=== PATIENT | female | born 1995 | race African-American/Black ===

== ENCOUNTER 2017-02-19 21:53 | Emergency (ER) | payer OTHER ==
--- NOTE | 2017-02-19 23:42 | XRAY Preliminary Report ---
Exam: XR Abdomen 2 View IMPRESSION: 1. No acute abnormality seen. [facility] SITE ID: [id number]
--- NOTE | 2017-02-19 23:45 | XRAY Report ---
EXAM: ABDOMEN RADIOGRAPHY EXAM DATE: 02/19/2017 11:24 PM. CLINICAL HISTORY: Diffuse abdominal pain and constipation. COMPARISON: None. TECHNIQUE: 2 views. FINDINGS: Lung Bases: Unremarkable. Bowel Gas Pattern: No dilated loops or abnormal air-fluid levels. Free Air: None. Other: None. IMPRESSION: 1. No acute abnormality seen. [facility] Referring Provider Line: [phone] SITE ID: [id number]
[2017-02-19 23:46] LABS: BASOPHILS # (AUTO) 0.1 10^3/uL (0.0-0.1); BASOPHILS % (AUTO) 1.1 %; EOSINOPHILS # (AUTO) 0.1 10^3/uL (0.0-0.7); EOSINOPHILS % (AUTO) 2.3 %; HCT - HEMATOCRIT 38.8 % (37.0-47.0); LYMPHOCYTES # (AUTO) 2.4 10^3/uL (1.5-3.5); LYMPHOCYTES % (AUTO) 45.4 %; MEAN CORPUSCULAR HEMOGLOBIN 29.8 pg (27.0-31.0); MEAN CORPUSCULAR HGB CONC 33.5 g/dL (32.0-36.0); MEAN CORPUSCULAR VOLUME 88.9 fL (81.0-99.0); MEAN PLATELET VOLUME 9.7 fL (7.9-10.8); MONOCYTES # (AUTO) 0.5 10^3/uL (0.0-1.0); MONOCYTES % (AUTO) 10.1 %; NEUTROPHILS # (AUTO) 2.2 10^3/uL (1.5-6.6); NEUTROPHILS % (AUTO) 41.1 %; RED BLOOD COUNT 4.36 10^6/uL (4.20-5.40); RED CELL DISTRIBUTION WIDTH 13.5 % (12.0-15.0); UNCORRECTED WHITE BLOOD COUNT 5.4 x10^3/uL; WHITE BLOOD COUNT 5.4 x10^3/uL (4.8-10.8)
--- NOTE | 2017-02-19 23:48 | ED Physician Documentation ---
PD HPI ABD PAIN - Stated complaint Stated Complaint: SIDE PX - Chief complaint Chief Complaint: Abd Pain - History obtained from History obtained from: Patient, Friend - History of Present Illness Timing - onset: How many weeks ago (4) Timing - details: Gradual onset, Intermittant, Waxing and waning Quality: Cramping, Sharp Location: All over / everywhere Worsened by: Eating, Position, Palpation Associated symptoms: Constipation. No: Fever, Nausea, Vomiting, Diarrhea Similar symptoms before: Has not had sx before Recently seen: Not recently seen - Additional information Additional information: Patient is a 21 year old female with no significant past medical history who is presenting to the emergency department for abdominal pain. Patient states that the pain has been coming and going for the last few month. Patient states that she only has a bowel movement if she drinks prune juice. Patient denies any other aggravating or alleviating factors. Patient denies nausea, vomiting, fevers or chills. Review of Systems Constitutional: denies: Fever, Chills Eyes: denies: Decreased vision Ears: denies: Ear pain, Drainage/discharge Nose: denies: Rhinorrhea / runny nose, Congestion Throat: denies: Dental pain / toothache, Oral lesions / sores Cardiac: denies: Chest pain / pressure, Palpitations GI: reports: Abdominal Pain, Constipation. 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 : None HEENT: None Psych: None Musculoskeletal: None Derm: None - Past Surgical History Past Surgical History: No - Present Medications Home Medications: Ambulatory Orders Medication Instructions Recorded Confirmed Dicyclomine [Bentyl] 10 mg PO QID #14 capsule 02/20/17 - Allergies Allergies/Adverse Reactions: Allergies Allergy/AdvReac Type Severity Reaction Status Date / Time No Known Drug Allergies Allergy Verified 02/19/17 22:03 - Social History Does the pt smoke?: No Smoking Status: Never smoker Does the pt drink ETOH?: No Does the pt have substance abuse?: No - Immunizations Immunizations are current?: Yes - POLST Patient has POLST: No PD ED PE NORMAL - Vitals Vital signs reviewed: Yes - General General: Alert and oriented X 3, No acute distress, Well developed/nourished - HEENT HEENT: Atraumatic, PERRL - Neck Neck: Supple, no meningeal sign - Cardiac Cardiac: RRR, No murmur - Respiratory Respiratory: No respiratory distress, Clear bilaterally - Abdomen Abdomen: Soft - Derm Derm: Normal color, Warm and dry, No rash - Extremities Extremities: No deformity, No tenderness to palpate - Neuro Neuro: Alert and oriented X 3, No motor deficit, No sensory deficit, Normal speech - Psych Psych: Normal mood, Normal affect PD ED PE EXPANDED - Abdomen Abdomen: Tender to palpation, Generalized/diffuse. No: Distended, Rebound, Guarding Results - Vitals Vitals: Vital Signs - 24 hr 02/19/17 02/19/17 21:57 22:48 Temperature 36.6 C Heart Rate 70 Respiratory 16 16 Rate Blood Pressure 125/88 H O2 Saturation 99 Oxygen O2 Source Room air - Labs Labs: Laboratory Tests 02/19/17 02/19/17 02/19/17 23:30 23:30 23:45 WBC 5.4 RBC 4.36 Hgb 13.0 Hct 38.8 MCV 88.9 MCH 29.8 MCHC 33.5 RDW 13.5 Plt Count 218 MPV 9.7 Neut # 2.2 Lymph # 2.4 [place] # 0.5 Eos # 0.1 Baso # 0.1 Absolute Nucleated RBC 0.00 Nucleated RBC % 0.0 Sodium 138 Potassium 3.7 Chloride 106 Carbon Dioxide 23 Anion Gap 9.0 BUN 10 Creatinine 0.7 Estimated GFR (MDRD) 131 Glucose 119 H Calcium 9.4 Total Bilirubin 0.4 AST 16 ALT 15 Alkaline Phosphatase 55 Total Protein 7.2 Albumin 4.2 Globulin 3.0 Albumin/Globulin Ratio 1.4 Lipase 24 Urine Color YELLOW Urine Clarity CLEAR Urine pH 6.5 Ur Specific [place] 1.020 Urine Protein NEGATIVE Urine Glucose (UA) NEGATIVE Urine Ketones NEGATIVE Urine Occult Blood NEGATIVE Urine Nitrite NEGATIVE Urine Bilirubin NEGATIVE Urine Urobilinogen 1 (NORMAL) Ur Leukocyte Esterase NEGATIVE Ur Microscopic Review NOT INDICATED Urine Culture Comments NOT INDICATED Urine HCG, Qual NEGATIVE - Rads (name of study) abd x-ray Radiology: Final report received (no obstruction appreciated) PD MEDICAL DECISION MAKING - ED course Complexity details: reviewed old records, reviewed results, re-evaluated patient , considered differential, d/w patient ED course: Patient was seen and examined at bedside. labs were drawn, urine was collected and imaging was ordered. patient's diagnostics were all within normal limits. Patient was well appearing with a soft abdomen. Patient required no further work-up and was stable for discharge with outpatient follow up. Departure - Departure Disposition: Home, Self Care Clinical Impression: Abdominal pain Condition: Good Instructions: ED Abdominal Pain Unkn Cause Follow-Up: primary,care provider [Other] Prescriptions: Dicyclomine [Bentyl] 10 mg PO QID #14 capsule Comments: Your diagnostics today were within normal limits. It is difficult to say what is exactly causing your pain but is likely due to abdominal cramping. you should try to increase your fluid intake, and fruits and vegetables. You can take motrin or tylenol as needed for pain, and can take the bentyl for abdominal cramping. You should follow up with your pmd if your symptoms persist. You may return to the emergency department at any time for new, worsening or uncontrollable symptoms.
[2017-02-19 23:55] LABS: ALBUMIN/GLOBULIN RATIO 1.4 (1.0-2.2); BILIRUBIN,TOTAL 0.4 mg/dL (0.2-1.0); CALCIUM 9.4 mg/dL (8.5-10.3); CREATININE 0.7 mg/dL (0.4-1.0); POTASSIUM 3.7 mmol/L (3.5-5.0); TOTAL PROTEIN 7.2 g/dL (6.7-8.2)
[2017-02-20 00:04] LABS: BILIRUBIN,URINE NEGATIVE (NEGATIVE); PH,URINE 6.5 PH (5.0-7.5)
[2017-02-20 00:05] LABS: HCG UR QUAL NEGATIVE; UA CHARGE (STRIP ONLY) YES; UR CULTURE IF IND NOT INDICATED
[2017-02-20 00:18] VITALS: BP 120/76
== END 2017-02-20 00:18 | disposition home or self-care (01) ==
LOC: ED 21:53
DX: R10.84 Generalized abdominal pain (principal); F17.200 Nicotine dependence, unspecified, uncomplicated
CPT/HCPCS: 36415; 74020; 80053; 81001; 81003; 81025; 83690; 85025; 87086; 99283

== ENCOUNTER 2017-05-18 05:58 | Emergency (ER) | payer OTHER ==
--- NOTE | 2017-05-18 06:29 | ED Physician Documentation ---
History of Present Illness - Stated complaint Stated Complaint: HEADACHE - Chief complaint Chief Complaint: Neuro - History obtained from History obtained from: Patient (pt states that she has had headaches all ofher life but 2 weeks ago she started to have differnet headache. she states that these headache have been right frontal and back of her head. she states that she feels like her right jaw is "full". no sinus congestion. she states that her prior headache usually get better when she wears her glasses but now they do not. no fevers, no neck pain, no sinus congestion, no rashes, no travel. she states that she has been told that she has a cavity on the right side of her mouth (unsure if it is top or bottom). she ahs had the same glasses Rx since her eye exam in [facility] 1 year ago.) Review of Systems Constitutional: denies: Fever, Chills Eyes: denies: Loss of vision, Decreased vision, Photophobia, Discharge Ears: denies: Loss of hearing, Ear pain, Tinnitus/ringing, Foreign body Nose: denies: Rhinorrhea / runny nose, Congestion, Sinus pressure / pain, Foreign Body Throat: reports: Other (right side jaw' fullness"). denies: Dental pain / toothache, Oral lesions / sores, Sore throat GI: denies: Nausea, Vomiting Skin: denies: Rash, Lesions, Laceration (s) Neurologic: reports: Headache. 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 : None HEENT: None Psych: None Musculoskeletal: None Derm: None - Past Surgical History Past Surgical History: No - Present Medications Home Medications: Ambulatory Orders Medication Instructions Recorded Confirmed No Known Home Medications [No 05/18/17 05/18/17 Known Home Medications] - Allergies Allergies/Adverse Reactions: Allergies Allergy/AdvReac Type Severity Reaction Status Date / Time No Known Drug Allergies Allergy Verified 05/18/17 06:05 - Social History Does the pt smoke?: No Smoking Status: Never smoker Does the pt drink ETOH?: No Does the pt have substance abuse?: No - Immunizations Immunizations are current?: Yes - POLST Patient has POLST: No PD ED PE NORMAL - Vitals Vital signs reviewed: Yes - General General: Alert and oriented X 3, No acute distress, Well developed/nourished - HEENT HEENT: Atraumatic, PERRL, EOMI, Ears normal, Moist mucous membranes, Pharynx benign, Dentition benign - Neck Neck: Supple, no meningeal sign, No bony TTP, No adenopathy, No JVD - Cardiac Cardiac: RRR, No murmur - Respiratory Respiratory: No respiratory distress, Clear bilaterally - Derm Derm: Normal color, Warm and dry, No rash - Neuro Neuro: Alert and oriented X 3, accountant assistant 2-12 intact, Normal speech Eye Opening: Spontaneous Motor: Obeys Commands Verbal: Oriented GCS Score: 15 - Psych Psych: Normal mood, Normal affect PD ED PE EXPANDED - HEENT HEENT: Atraumatic, PERRL, EOMI, Ears normal. No: Head injury - Neck Neck: Supple w/out meningeal sx, No tenderness. No: Stiff neck, Soft tissue TTP , Limited ROM Results - Vitals Vitals: Vital Signs - 24 hr 05/18/17 06:02 Temperature 36.5 C Heart Rate 80 Respiratory 16 Rate Blood Pressure 134/81 H O2 Saturation 100 Oxygen O2 Source Room air PD MEDICAL DECISION MAKING - ED course Complexity details: reviewed old records, considered differential, d/w patient ED course: discussed sx with the patient. I doubt her symptoms today are formthe known dental cavity that she has on the left. Her symptoms do somewhat fit an ocular etiology or TMJ etiology of the pain. She has a normal neuro exam today. will hold on head CT. doubt SAH. her symptoms have been going on for the past 2 weeks. [place] She was given return precautions. 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 Call the dental department to have the cavity filled and to discuss you headaches and jaw pain. Recommend that you also see the eye Doctors to have them to another evaluation to see if your need new glasses. Return to the ER for any new symptoms.
[2017-05-18 06:42] VITALS: BP 121/60
== END 2017-05-18 06:40 | disposition home or self-care (01) ==
LOC: ED 05:58
DX: R51 Headache (principal)
CPT/HCPCS: 99283

== ENCOUNTER 2018-06-13 09:30 | Emergency (ER) | payer OTHER ==
[2018-06-13] MEDS ORDERED: DEXAMETHASONE 10 MG/ML VIAL PO STA (10:06)
--- NOTE | 2018-06-13 10:06 | ED Physician Documentation ---
PD HPI URI - Stated complaint Stated Complaint: COLDS - Chief complaint Chief Complaint: General - History obtained from History obtained from: Patient - History of Present Illness Timing - onset: How many weeks ago (1) Timing duration: Weeks (1) Timing details: Gradual onset, Still present Associated symptoms: Fever, Ear pain, Nasal congestion, Rhinorrhea, Sore throat, Dry cough Contributing factors: Sick contact Improves by: Rest, Medication Worsened by: Activity Similar symptoms before: Has not had sx before Recently seen: Not recently seen - Additional information Additional information: Previously well 22-year-old female who does not usually gets sick is developed a cough and congestion with some left ear pain. She has not had improvement with [id number] decongestants and continues to have a cough with sore throat. Review of Systems Constitutional: reports: Fever, Chills, Myalgias Eyes: denies: Decreased vision Ears: reports: Ear pain Nose: reports: Rhinorrhea / runny nose, Congestion Throat: reports: Sore throat Cardiac: denies: Chest pain / pressure, Palpitations Respiratory: reports: Cough. 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 : None HEENT: None Psych: None Musculoskeletal: None Derm: None - Past Surgical History Past Surgical History: No - Present Medications Home Medications: Ambulatory Orders Medication Instructions Recorded Confirmed Amox/Clav 875/125 [Augmentin] 1 each PO Q12H #20 tablet 06/13/18 - Allergies Allergies/Adverse Reactions: Allergies Allergy/AdvReac Type Severity Reaction Status Date / Time No Known Drug Allergies Allergy Verified 06/13/18 09:37 - Social History Does the pt smoke?: No Smoking Status: Never smoker Does the pt drink ETOH?: No Does the pt have substance abuse?: No - Immunizations Immunizations are current?: Yes - POLST Patient has POLST: No PD ED PE NORMAL - Vitals Vital signs reviewed: Yes (normal ) - General General: Alert and oriented X 3, No acute distress, Well developed/nourished - HEENT HEENT: Atraumatic, PERRL, EOMI, Other (left TM is inflamed and the right is less involved with mild inflamation with retained landmarks. ) - Neck Neck: Supple, no meningeal sign, No bony TTP - Cardiac Cardiac: RRR, No murmur - Respiratory Respiratory: No respiratory distress, Clear bilaterally - Abdomen Abdomen: Soft, Non tender - Back Back: No CVA TTP, No spinal TTP - Derm Derm: Normal color, Warm and dry, No rash - Extremities Extremities: No deformity, No edema - Neuro Neuro: Alert and oriented X 3, canal superintendent 2-12 intact, No motor deficit, No sensory de ficit, Normal speech Eye Opening: Spontaneous Motor: Obeys Commands Verbal: Oriented GCS Score: 15 - Psych Psych: Normal mood, Normal affect Results - Vitals Vitals: Vital Signs - 24 hr 06/13/18 09:34 Temperature 36.3 C L Heart Rate 72 Respiratory 16 Rate Blood Pressure 125/77 O2 Saturation 100 Oxygen O2 Source Room air PD MEDICAL DECISION MAKING - ED course Complexity details: considered differential, d/w patient ED course: 22-year-old female with URI has otitis media on exam she is administered dexamethasone 10 mg orally here in the emergency department and we will place her on some augmentin, . Departure - Departure Disposition: Home, Self Care Clinical Impression: Otitis media Qualifiers: Otitis media type: suppurative Chronicity: acute Laterality: left Recurrence: non-recurrent Spontaneous tympanic membrane rupture: without spontaneous rupture Qualified Code(s): H66.002 - Acute suppurative otitis media without spontaneous rupture of ear drum, left ear Condition: Stable Instructions: ED Otitis Media Acute [facility] Prescriptions: Amox/Clav 875/125 [Augmentin] 1 each PO Q12H #20 tablet Forms: Activity restrictions
[2018-06-13 11:06] VITALS: BP 109/78
== END 2018-06-13 11:11 | disposition home or self-care (01) ==
LOC: ED 09:30
DX: H66.002 Acute suppurative otitis media without spontaneous rupture of ear drum, left ear (principal); J06.9 Acute upper respiratory infection, unspecified
CPT/HCPCS: 99283